=== PATIENT | female | born 1935 | race Caucasian/White ===

== ENCOUNTER 2016-08-20 07:07 | Emergency (ER) | payer MEDICARE ==
[2016-08-20] MEDS ORDERED: NORCO 5/325 ONE (07:21)
[2016-08-20] MEDS ORDERED: NORCO 5/325 PO ONE (07:23)
--- NOTE | 2016-08-20 08:21 | Emergency Department Report ---
HPI - General Chief Complaint: Extremity Problem,Nontraumatic Time Seen by Provider: 08/20/16 07:57 - HPI HPI: This is a 81-year-old -[place] female who presents to the emergency department with the concern for a left hip dislocation. The patient was leaning over at home at about 6 AM this morning when she felt a pop and fell over. Since that time she's been having left hip pain and she cannot move it. Normally she is ambulatory without much assistance. She has a history of bilateral hip replacement surgery, with the left hip being done in 2006. The patient lives in [place] and is visiting her daughter currently. She says that she has had instances where the hip pop out of place but then it goes back in to place on its own and she has never required a visit to the emergency department for a hip reduction. She did not take anything for symptoms prior to presentation and was driven in to be seen by her daughter. ED Past Medical Hx - Past Medical History Previous Medical History?: Yes Hx Hypertension: Yes Hx Arthritis: Yes Additional medical history: High cholesterol, Parathyroid problems - Surgical History Past Surgical History?: Yes Additional Surgical History: Left hip and right hip replacemnt - Social History Smoking Status: Never Smoker Substance Use Type: Prescribed ED Review of Systems ROS: Stated complaint: HIP/JOINT PAIN/L LEG/THIGH PAIN Other details as noted in HPI Comment: All other systems reviewed and negative Constitutional: denies: chills, fever Eyes: denies: eye pain, eye discharge, vision change ENT: denies: ear pain, throat pain Respiratory: denies: cough, shortness of breath, wheezing Cardiovascular: denies: chest pain, palpitations Gastrointestinal: denies: abdominal pain, nausea, diarrhea Genitourinary: denies: urgency, dysuria, discharge Musculoskeletal: arthralgia. denies: back pain Skin: denies: rash, lesions Neurological: denies: headache, weakness, paresthesias Physical Exam - Physical Exam Vital Signs: Vital Signs 08/20/16 08/20/16 07:12 07:24 Temperature 98.4 F Pulse Rate 93 H Respiratory 18 18 Rate Blood Pressure 151/93 O2 Sat by Pulse 99 Oximetry Physical Exam: GENERAL: The patient is well-developed well-nourished. HEENT: Normocephalic. Atraumatic. Extraocular motions are intact. Patient has moist mucous membranes. Pupils equal reactive to light bilaterally. NECK: Supple. Trachea is midline. CHEST/LUNGS: Clear to auscultation. There is no respiratory distress noted. HEART/CARDIOVASCULAR: Regular. There is no tachycardia. There is no gallop rub or murmur. ABDOMEN: Abdomen is soft, nontender. Patient has normal bowel sounds. There is no abdominal distention. SKIN: Skin is warm and dry. NEURO: The patient is awake, alert, and oriented. The patient is cooperative. The patient has no focal neurologic deficits. The patient has normal speech. MUSCULOSKELETAL: Patient has significant deformity to the left lower extremity as it is in a extreme internal rotation and appears dislocated at the hip. She has decreased range of motion of the left lower extremity secondary to pain and suspected dislocation. Pedal pulses +2 over 4 bilaterally. Cap refill less than 2 seconds. Patient is neurovascularly intact. ED Course Vital Signs 08/20/16 08/20/16 07:12 07:24 Temperature 98.4 F Pulse Rate 93 H Respiratory 18 18 Rate Blood Pressure 151/93 O2 Sat by Pulse 99 Oximetry - Consultations Consultation #1: I spoke with the orthopedist on-call, Dr. Mcgill, regarding the post hip reduction treatment and he recommends a knee immobilizer to limit hip flexion and crutches or a walker to limit full weightbearing. 08/20/16 10:07 - Moderate Sedation Indications: fracture/dislocation redu ASA Class: I Mallampati Airway Score: 1 Preparation: vehicle monitor technician applied, pulse oximeter, capnometry used, supplemental O2 applied, reversal agents at bedside, suction/airway equipment at bedside, IV secured Ketamine: IV Ketamine Dose: 35 IV Propofol Dose (mgs): 35 Complications: none Patient Tolerated Procedure: well Additional Comments: The procedure for moderate sedation began at 0847 and went until the patient was confirmed to be awake and alert at 0905. - Orthopedic Joint Reduction Joint #1 Consent Obtained: written consent Time Out Performed: Yes Side: left Joint Reduction Location: hip Analgesia: moderate sedation Technique Used: other (traction and internal rotation) Post-Reduction Neuro Exam: intact Post-Reduction Vascular Exam: intact Post Reduction X-Ray Obtained: Yes Post Reduction X-Ray Results: reduced Patient Tolerated Procedure: well Additional Comments: The procedure began at 0847 and was completed at 0858 when reduction was confirmed by x-ray. - Pulse Oximetry Interpretation Digit-Finger Initial Pulse Oximetry Readin O2 Sat by Pulse Oximetry: 99 Actions Taken: none ED Medical Decision Making - Radiology Data Radiology results: image reviewed interpreted by me: X-ray of the pelvis and the left hip shows a superior lateral dislocation of the left hip and a hip replacement joint. Postreduction x-ray shows appropriate reduction of the left hip dislocation. - Medical Decision Making 81-year-old female presents with a left hip dislocation after bending over at home about 6 AM this morning. Patient was found to be neurovascularly intact. X-ray confirmed dislocation. Patient was given moderate sedation and then there was one attempt for reduction which was successful and confirmed on post reduction x-ray. I spoke with the orthopedist who recommends a knee immobilizer and a walker for partial nonweightbearing to that left lower extremity. The patient is from [facility] and will be transferred back home by her family where she has a primary care and orthopedist for follow-up. All of the procedures were preceded by written or verbal agreements. All of the imaging and results were discussed with the patient and her family as well as the plan and they understand and agree. The patient is to return to the emergency department with any worsening of her symptoms or any acute distress. - Differential Diagnosis hip dislocation, fracture, contusion, muscle strain, sprain Critical Care Time: No Critical care attestation.: If time is entered above; I have spent that time in minutes in the direct care of this critically ill patient, excluding procedure time. ED Disposition Clinical Impression: Hip dislocation, left Qualifiers: Encounter type: initial encounter Qualified Code(s): S73.005A - Unspecified dislocation of left hip, initial encounter Disposition: DISCHARGED TO HOME OR SELFCARE Is pt being admited?: No Condition: Stable Instructions: Hip Dislocation (ED) Additional Instructions: Please follow-up with your primary care and orthopedist physician once you returned to [place]. Use the knee immobilizer and the walker for limited left lower extremity weightbearing until follow-up. Return to the emergency department with any worsening of your symptoms or any acute distress. Referrals: PRIMARY CARE, [Primary Care Provider] - [facility] Time of Disposition: 10:23
[2016-08-20] MEDS ORDERED: NACL 0.9% 500 ML 500 ML IV ONE (08:22)
[2016-08-20] MEDS ORDERED: DIPRIVAN 10 MG/ML IV ONE (08:22)
[2016-08-20] MEDS ORDERED: KETALAR IV ONE (08:22)
--- NOTE | 2016-08-20 08:26 | XRay Report ---
[facility]GRAP[facility] INDICATION: Left hip injury, pain. COMPARISON: None similar at this institution. FINDINGS: Attempted AP and crosstable lateral views of the left hip demonstrate bilateral hip arthroplasty components, dislocated on the left. Left prosthetic femoral head located superolateral and out of the acetabular cup. Numerous pelvic calcifications, possibly combination of phleboliths and fibroids, latter measuring up to 2.5 cm. Nonobstructive bowel gas pattern. Lower lumbar spine degenerative changes. Intact SI joints. CONCLUSION: 1. Left hip dislocation in this patient with bilateral hip replacements, as described. 2. Few other findings, as above. Thank you for the opportunity to participate in this patient's care.
[2016-08-20] MEDS ORDERED: KETALAR ONE (08:36)
--- NOTE | 2016-08-20 09:26 | XRay Report ---
[facility] RADIOGRAPH INDICATION: Postreduction. COMPARISON: 7:30 AM earlier today. FINDINGS: Portable, single, frontal pelvic radiograph, 8:58 AM, 08/20/2016 demonstrates satisfactory interval left hip reduction. No other significant interval change. CONCLUSION: Interval left hip reduction in this patient with bilateral hip replacements. Thank you for the opportunity to participate in this patient's care.
[2016-08-20 10:28] VITALS: BP 106/58
== END 2016-08-20 11:05 | disposition home or self-care (01) ==
LOC: ED 07:07
DX: S73.005A Unspecified dislocation of left hip, initial encounter (principal); M79.662 Pain in left lower leg; M19.90 Unspecified osteoarthritis, unspecified site; I10 Essential (primary) hypertension; Z96.641 Presence of right artificial hip joint; Z96.642 Presence of left artificial hip joint; E78.00 Pure hypercholesterolemia, unspecified; W01.0XXA Fall on same level from slipping, tripping and stumbling without subsequent striking against object, initial encounter; Y93.89 Activity, other specified; Y99.8 Other external cause status; Y92.89 Other specified places as the place of occurrence of the external cause
CPT/HCPCS: 27250; 29505; 72170; 96360; 99284; J2704; J7040